=== PATIENT | female | born 1990 | race Caucasian/White ===

== ENCOUNTER 2021-02-26 10:30 | Emergency (ER) | payer OTHER ==
[~2021-02-26] VITALS: Ht 157.5 cm; Wt 63.5 kg
[2021-02-26] MEDS ORDERED: DEPAKOTE ER250 MG (10:50)
[2021-02-26] MEDS ORDERED: CIPRO500 MG PO (14:32)
== END 2021-02-26 14:59 | disposition home or self-care (01) ==
LOC: ER 10:30
DX: B34.9 Viral infection, unspecified (principal); M54.50 Low back pain, unspecified; Z03.818 Encounter for observation for suspected exposure to other biological agents ruled out

== ENCOUNTER 2021-03-01 10:40 | Emergency (ER) | payer OTHER ==
[~2021-03-01] VITALS: Ht 157.5 cm; Wt 63.5 kg
[~2021-03-01 10:40] MED LIST: CIPRO500 MG PO; DEPAKOTE ER250 MG
[2021-03-01] MEDS ORDERED: HALDOL DEC50 MG/1 ML IM (11:42)
== END 2021-03-01 14:17 | disposition home or self-care (01) ==
LOC: ER 10:40
DX: N39.0 Urinary tract infection, site not specified (principal); R53.81 Other malaise